=== PATIENT | female | born 1990 | race Caucasian/White ===

== ENCOUNTER → 2020-10-10 06:53 | Outpatient (CLI) | payer SELFPAY ==
[2020-09-22 09:56] VITALS: BMI 23.2
[2020-10-10 07:56] LABS: Prolactin 17.4 ng/mL; Thyroid Stim Hormone (TSH) 0.75 uIU/mL (0.358-3.74)
[2020-10-14 11:18] LABS: Testosterone Free 1.4 pg/mL (0.0-4.2)
== END ==
PROVIDERS: Referring Provider Obstetrics & Gynecology; Visit Provider Obstetrics & Gynecology
DX: N97.9 Female infertility, unspecified (principal)
CPT/HCPCS: 36415; 82627; 84146; 84402; 84443; 82626